=== PATIENT | female | born 1990 | race Caucasian/White ===

== ENCOUNTER → 2018-05-11 | Outpatient (CLI) | payer OTHER | LOC: BMCIMAGING 13:04 | PROVIDERS: ATTEND Orthopaedic Surgery Hand Surgery | DX: M79.641 Pain in right hand (principal) ==

== ENCOUNTER → 2018-11-18 | Outpatient (CLI) | payer OTHER | LOC: BMCIMAGING 14:39 | PROVIDERS: ATTEND Orthopaedic Surgery Hand Surgery | DX: Z13.828 Encounter for screening for other musculoskeletal disorder (principal) ==